=== PATIENT | female | born 1960 | race Caucasian/White ===

== ENCOUNTER 2025-04-30 17:00 | Emergency (ER) | payer OTHER ==
[~2025-04-30] VITALS: Ht 165.1 cm; Wt 117.2 kg
--- NOTE | 2025-04-30 17:25 | ED.PDOC ---
HPI Comments HPI: 65 year old female presents to the ED via EMS with a chief complaint of shortness of breath onset today. PMHx CHF, COPD, HTN, HLD, emphysema, N-stemi, cardiac stents. Per EMS, patient went to see PCP at [facility], in the last few months, patient has noticed O2 saturation drops with exertion, is on 8L O2, sat dropped to 70%. Patient is tachycardic when standing, HR was 133, [facility] called 911. Patient states she been following up with specialist due to symptoms. No other symptoms or modifying factors present at this time. Initial Vitals BP: 119/53 HR: 108 RR: 18 O2: 100 % Temp: 98.1 F Past Medical History: HTN, HLD, emphysema, N-stemi, COPD, CHF Past Surgical History: cardiac stents Social History: Denies ETOH, smoking, and drug use. Medications: Aspirin, Lasix Allergies: NKDA HPI: Poor Historian. REVIEW OF SYSTEMS: CONSTITUTIONAL: Denies acute: fever, diaphoresis, chills, generalized weakness. HEAD: Denies acute: headache, photophobia Eyes: Denies acute: Double vision, vision loss, eye pain, eye discharge. EARS: Denies acute: tinnitus, hearing loss, ear discharge, ear pain, THROAT: Denies acute: sore throat, swelling, difficulty swallowing , pain with swallowing, change in voice. NECK: Denies acute: neck pain, neck swelling, stiff neck. HEART: Denies acute : chest pain, LUNGS: Denies acute: wheezing, cough, hemoptysis ABDOMEN: Denies acute: abdominal pain, Nausea, Vomiting, diarrhea, melena , hematemesis, hematochezia SKIN: Denies acute: rash, redness, lesions, itchiness. EXTREMITIES: Denies acute: calf pain, numbness, tingling, weakness, denies pain in extremity. Denies acute: Low back pain. Neuro: Denies acute: focal neurological deficit, motor or sensory focal neurological deficit, tremors, seizure like activity, confusion, dizziness, change in mental status, loss of bowel or bladder function, cauda equina like symptoms. : Denies acute: dysuria, hematuria, flank pain, increase in urinary frequency. PSYCH: Denies acute: hallucination, suicidal ideation, homicidal ideation. FEMALE: Denies acute: abnormal vaginal bleeding, foul odor, unusual discharge. PHYSICAL EXAM: General: ---misb-km-hvnchsgl-----acute distress, awake and alert. Head: normocephalic, atraumatic. Neck: supple, trachea is midline, no swelling. Throat: Normal phonation. Eyes:, no erythema, no purulent discharge, no proptosis, no icterus. Heart: regular tachycardic, no significant murmur appreciated. Lungs: no apparent respiratory distress, Able to speak in full sentences. No wheezing, no rhonchi, no crackles. No stridors Clear to auscultation bilaterally. Abdomen: non tender to palpation, non distended, soft, no guarding, no rebound, + bowel sounds. Neuro: Awake, Alert, oriented to name, self, situation, follows commands GCS=15. Speech is normal. Skin: no petechia, no purpura, no cyanosis, non-pale, not jaundice. Lower extremities: --trace bilateral - Pitting edema no deformity, no focal swelling, no calf TTP. Makes eye contact. moves all four extremities. Face: no apparent facial droop. ED COURSE: DISCLAIMER: This medical document was created using an electronic medical record system with voice recognition software and computerized dictation system. Although this document has been carefully reviewed, there might still be some phonetic and typographical errors. Occasional wrong-word or "sound-alike" substitutions may have occurred due to the inherent limitations of voice recognition software. These areas are purely typographical due to imperfections of the software programs and do not reflect any compromise in the patient's medical care. Please read the chart carefully and recognize, using context, where these substitutions have occurred. Chief Complaint: Palpitations Time Seen by MD: 17:10 Reviewed Notes: Medications, Allergies Allergies: Coded Allergies: Citalopram (Verified Allergy, Unknown, 04/30/25) Egg Solids, Whole (Verified Allergy, Unknown, 04/30/25) Tetracycline (Verified Allergy, Unknown, 04/30/25) Information Source: Patient, Emergency Med Personnel Mode of Arrival: EMS Severity: Moderate Timing: Hours Duration: Since onset Prehospital treatment: Oxygen Onset: With Light Exertion Cardiac Risk Factors: Hyperlipidemia, HTN PE Risk Factors: None History of: Aspirin Associated Signs and Symptoms: SOB Past Medical History PAST MEDICAL HISTORY: CHF, COPD, High Lipids, HTN Past Medical History (Other): emphysema Surgical History: Denies all surgeries Surgical History (Other): stents ERRAND RUNNER History: No Pertinent ERRAND RUNNER History Family History Family History: Reviewed,noncontributory to illness, No family hx of Cancer, No family hx of DM, No family hx of Heart radha, No family hx of HTN, No family hx ofKidney radha, No family hx of Liver radha, No family hx of Lung radha, No family hx of Stroke Social History Smoker: Non-Smoker Alcohol: Denies ETOH Use Drugs: Denies Drug Use Lives In: Home Was a procedure done? Was a procedure done?: No X-Ray, Labs, Meds, VS Vital Signs Date Time Temp Pulse Resp B/P (MAP) Pulse Ox O2 Delivery O2 Flow Rate FiO2 04/30/25 20:16 18 95 Nasal Cannula* 2 28 04/30/25 20:10 146/91 04/30/25 20:10 98.3 109 16 146/91 (109) 95 98.3 04/30/25 20:05 22 96 Nasal Cannula* 2 28 04/30/25 17:07 100 04/30/25 17:04 98.1 108 18 119/53 (75) 100 98.1 Lab Test 04/30/25 21:09 04/30/25 20:33 04/30/25 20:07 04/30/25 19:04 Range/Units Troponin I High Sensitivity 7 6 </=34 ng/L Urine Color Yellow Yellow Urine Clarity Turbid H Clear Urine pH 6.0 5.0-9.0 Urine Specific [place] > 1.050 H 1.001-1.035 Urine Protein 1+ H Negative Urine Ketones Negative Negative Urine Blood Trace H Negative /uL Urine Nitrite Negative Negative Urine Bilirubin Negative Negative Urine Urobilinogen 2 H Negative mg/dL Urine Leukocyte Esterase Negative Negative /uL Urine RBC 13 0 - 4 /hpf Urine Microscopic WBC 2 0-5 /HPF Urine Squamous Epithelial Cells Mod <5 /hpf Urine Bacteria None seen None Seen /hpf Urine Mucus Few None Seen Urine Glucose Normal Normal mg/dL SARS-CoV-2 Antigen (Rapid) Negative NEGATIVE Test 04/30/25 18:48 7/11/25 17:49 Range/Units B-Type Natriuretic Peptide Pending White Blood Count 8.8 4.4-10.8 10^3/uL Red Blood Count 4.87 4.0-5.20 10^6/uL Hemoglobin 13.0 12.2-16.2 g/dL Hematocrit 40.1 36.0-46.0 % Mean Corpuscular Volume 82.3 80.0-100.0 fL Mean Corpuscular Hemoglobin 26.6 L 28.0-32.0 pg Mean Corpuscular Hemoglobin Concent 32.4 32.0-36.0 g/dL Red Cell Distribution Width 14.6 H 11.8-14.3 % Platelet Count 216 140-450 10^3/uL Mean Platelet Volume 8.9 6.9-10.8 fL Neutrophils (%) (Auto) 71.1 37.0-80.0 % Lymphocytes (%) (Auto) 17.0 10.0-50.0 % Monocytes (%) (Auto) 7.8 0.0-12.0 % Eosinophils (%) (Auto) 3.2 0.0-7.0 % Basophils (%) (Auto) 0.9 0.0-2.0 % Neutrophils # (Auto) 6.2 1.6-8.6 10 ^3/uL Lymphocytes # (Auto) 1.5 0.4-5.4 10 ^3/uL Monocytes # (Auto) 0.7 0-1.3 10 ^3/uL Eosinophils # (Auto) 0.3 0-0.8 10 ^3/uL Basophils # (Auto) 0.1 0-0.2 10 ^3/uL Nucleated Red Blood Cells 0.1 % D-Dimer, Quantitative 1.58 H 0.0-0.49 mg/L FEU Sodium Level 142 136-145 mmol/L Potassium Level 3.9 3.5-5.1 mmol/L Chloride Level 107 98-107 mmol/L Carbon Dioxide Level 27 20-31 mmol/L Anion Gap 8 5-15 Blood Urea Nitrogen 9 9-23 mg/dL Creatinine 0.74 0.550-1.02 mg/dL Glomerular Filtration Rate Calc 90 >90 mL/min BUN/Creatinine Ratio 12.2 10.0-20.0 Serum Glucose 103 74-106 mg/dL Calcium Level 10.0 8.7-10.4 mg/dL Magnesium Level 2.0 1.6-2.6 mg/dL Total Bilirubin 0.3 0.2-1.0 mg/dL Aspartate Amino Transferase (AST) 23 13-40 U/L Alanine Aminotransferase (ALT) 17 7-40 U/L Alkaline Phosphatase 109 46-116 U/L Troponin I High Sensitivity 6 </=34 ng/L Total Protein 7.0 5.7-8.2 g/dL Albumin 4.3 3.2-4.8 g/dL Current Medications Medications (Trade) Dose Ordered Sig/Juan Manuel Route Start Time Stop Time Status Last Admin Albuterol (Ventolin Medneb) 2.5 mg ONCE ONCE NEB 04/30/25 19:45 04/30/25 20:04 DC 04/30/25 20:05 Ipratropium [place] (Atrovent Medneb) 1 mg ONCE ONCE NEB 04/30/25 19:45 04/30/25 20:04 DC 04/30/25 20:05 Methylprednisolone Sodium Succinate (Solu Medrol) 125 mg ONCE ONCE IV 04/30/25 19:45 04/30/25 20:04 DC 04/30/25 20:08 Furosemide (Lasix Injection) 40 mg ONCE ONCE IV 04/30/25 19:45 04/30/25 20:04 DC 04/30/25 20:10 [place] [address] Ph: [phone] DIAGNOSTIC IMAGING Diagnostic Imaging Report : [id number] Signed PATIENT: BRADY ARROYO ACCT: [id number] UNIT: [id number] : 1960 LOC: ER ROOM / BED: / AGE / SEX: 65 / F ADM STATUS: REG ER SERVICE 2094 ORDERING PHYSICIAN: AIDAN HUNTER DO PROCEDURE(s): CTACH - CT ANGIO CHEST CONTRAST REASON: sob ORDER NUMBER(s): [id number], ACCESSION NUMBER(s): [id number] EXAM: CT CT ANGIO CHEST CONTRAST History: sob Comparison Study: None TECHNIQUE: A digital neuroscience director na image was obtained. During the uneventful, intravenous administration of contrast material, multislice data acquisition was obtained through the chest. 3-D postprocessing is performed by technologist including MIP imaging Radiation Dose : CTDI vol 29.2 mGy, DLP 920.82 mGy*cm. Findings: Lungs: There is scattered atelectasis/scarring. Biapical pleural parenchymal scarring along with mild bronchiectasis in the left upper lobe. Pleura: Unremarkable Heart/Great vessels: No cardiomegaly or pericardial effusion. Mild atherosclerotic calcifications of the aorta. Mild coronary artery calcifications. No pulmonary embolism, aneurysm, or dissection. Mediastinum: Nonspecific borderline mediastinal nodes. Soft tissues/Bones: Bilateral breast implants with suggestion of intracapsular rupture, [id number]-[id number]-[id number]-left. Upper abdomen: Small hiatal hernia. The partially visualized upper abdomen is within normal limits. Impression: 1. No CT evidence of pulmonary embolism or acute intrathoracic abnormality identified. 2. Additional findings as detailed. ATED BY: EDINSON DYKES MD DICTATED DATE/TIME: 04/30/252022 SIGNED BY: EDINSON DYKES MD SIGNED DATE/TIME: 04/30/252022 CC: [place] [address] Ph: [phone] DIAGNOSTIC IMAGING Diagnostic Imaging Report : [id number] Signed PATIENT: BRADY ARROYO ACCT: [id number] UNIT: [id number] : 1960 LOC: ER ROOM / BED: / AGE / SEX: 65 / F ADM STATUS: REG ER SERVICE 17 ORDERING PHYSICIAN: AIDAN HUNTER DO PROCEDURE(s): CXR1 - CHEST XRAY 1 VIEW REASON: palpitations ORDER NUMBER(s): [id number], ACCESSION NUMBER(s): [id number] CHEST RADIOGRAPH Indication: palpitations Technique: Single frontal view of the chest was obtained Comparison: None FINDINGS: Lines and Tubes: None Lungs: No focal consolidation. Pleura: No effusion. No pneumothorax. Cardiomediastinal contours: Unremarkable Bones: No acute osseous abnormality. IMPRESSION: 1. No acute cardiopulmonary disease. ATED BY: SMITHA ANTONY Jr., DO DICTATED DATE/TIME: 04/30/251850 SIGNED BY: SMITHA ANTONY Jr., DO SIGNED DATE/TIME: 04/30/251850 CC: Time of 1ST Reevaluation: 17:50 Reevaluation 1ST: Unchanged Time of 2ND Reevaluation: 19:36 (The case was discussed with the [facility] admitting team (HPI, physical exam, labs and diagnostic tests that were jamie ilable at the time of disposition, ED course, treatment plan) on the phone. They agreed to transfer the patient to their service by ALS for further evaluation and treatment. Dr. [email or web address]. Authorization number is--[id number]) Patient Education/Counseling: Diagnosis, Treatment Family Education/Counseling: No Family Present Departure 1 Departure Time of Disposition: 19:11 Impression: Primary Impression: Hypoxemia Additional Impressions: Elevated d-dimer Tachycardia Exertional dyspnea Left against medical advice Disposition: LEFT AGAINST MEDICAL ADVICE Admit to: Tele Condition: Guarded Discharged With: Self Critical Care Note Critical Care Time?: No I personally scribed for AIDAN HUNTER DO ([email or web address]) on 04/30/25 at 17:25. Elect ronically submitted by Leonela Henderson ([email or web address]). I personally scribed for AIDAN HUNTER DO ([email or web address]) on 04/30/25 at 18:30. Electronically submitted by Leonela Henderson ([email or web address]). I personally scribed for AIDAN HUNTER DO ([email or web address]) on 04/30/25 at 20:34. Electronically submitted by Leonela Henderson ([email or web address]). I personally scribed for AIDAN HUNTER DO ([email or web address]) on 04/30/25 at 21:48. Electronically submitted by Leonela Henderson ([email or web address]). AIDAN HUNTER DO Apr 30, 2025 17:25
[2025-04-30 18:09] LABS: Hematocrit 40.1 % (36.0-46.0); Hemoglobin 13.0 g/dL (12.2-16.2); Mean Corpuscular Hemoglobin 26.6 pg (28.0-32.0); Mean Corpuscular Volume 82.3 fL (80.0-100.0); Nucleated Red Blood Cells % 0.1 %
[2025-04-30 18:28] LABS: Alanine Aminotransferase 17 U/L (7-40); Albumin 4.3 g/dL (3.2-4.8); Alkaline Phosphatase 109 U/L (46-116); Anion Gap 8 (5-15); BUN/Creatinine Ratio 12.2 (10.0-20.0); Bilirubin, Total 0.3 mg/dL (0.2-1.0); Blood Urea Nitrogen 9 mg/dL (9-23); Calcium 10.0 mg/dL (8.7-10.4); Carbon Dioxide 27 mmol/L (20-31); Chloride 107 mmol/L (98-107); Glucose 103 mg/dL (74-106); Magnesium 2.0 mg/dL (1.6-2.6); Potassium 3.9 mmol/L (3.5-5.1); Sodium 142 mmol/L (136-145); Total Protein 7.0 g/dL (5.7-8.2)
--- NOTE | 2025-04-30 18:54 | DVH ---
CHEST RADIOGRAPH Indication: palpitations Technique: Single frontal view of the chest was obtained Comparison: None FINDINGS: Lines and Tubes: None Lungs: No focal consolidation. Pleura: No effusion. No pneumothorax. Cardiomediastinal contours: Unremarkable Bones: No acute osseous abnormality. IMPRESSION: 1. No acute cardiopulmonary disease.
[2025-04-30] MEDS: IOHEXOL 350 MG/ML 100ML IJ ONE (20:05)
[2025-04-30] MEDS: ALBUTEROL SULF 2.5 MG/0.5ML(0.5%) NEB SOLN NEB ONE (20:05)
[2025-04-30] MEDS: IPRATROPIUM BROM 0.5 MG/2.5ML INH SOL NEB ONE (20:05)
[2025-04-30] MEDS: methylPREDNISolone SOD SUCC 125 MG/2 ML VL IV ONE (20:08)
[2025-04-30 20:10] VITALS: BP 146/91; PULSE 109; TEMP 98.3
[2025-04-30] MEDS: FUROSEMIDE 40 MG/4 ML VIAL IV ONE (20:10)
[2025-04-30 20:16] VITALS: RESP 18; O2SAT 95
[2025-04-30] MEDS: IPRATROPIUM BROM 0.5 MG/2.5ML INH SOL ONE (20:22)
[2025-04-30] MEDS: ALBUTEROL SULF 2.5 MG/0.5ML(0.5%) NEB SOLN ONE (20:23)
--- NOTE | 2025-04-30 20:25 | DVH ---
EXAM: CT CT ANGIO CHEST CONTRAST History: sob Comparison Study: None TECHNIQUE: A digital coagulating bath operator image was obtained. During the uneventful, intravenous administration of c ontrast material, multislice data acquisition was obtained through the chest. 3-D postprocessing is performed by technologist including MIP imaging Radiation Dose : CTDI vol 29.2 mGy, DLP 920.82 mGy*cm. Findings: Lungs: There is scattered atelectasis/scarring. Biapical pleural parenchymal scarring along with mild bronchiectasis in the left upper lobe. Pleura: Unremarkable Heart/Great vessels: No cardiomegaly or pericardial effusion. Mild atherosclerotic calcifications of the aorta. Mild coronary artery calcifications. No pulmonary embolism, aneurysm, or dissection. Mediastinum: Nonspecific borderline mediastinal nodes. Soft tissues/Bones: Bilateral breast implants with suggestion of intracapsular rupture, right-greater -than-left. Upper abdomen: Small hiatal hernia. The partially visualized upper abdomen is within normal limits. Impression: 1. No CT evidence of pulmonary embolism or acute intrathoracic abnormality identified. 2. Additional findings as detailed.
[2025-04-30 20:50] LABS: COVID19 ANTIGEN SOFIA FIA NEGATIVE (NEGATIVE)
[2025-04-30 21:03] LABS: Urine Protein, UAD 1+ (Negative)
--- NOTE | 2025-04-30 21:15 | ECG ---
[facility] Test Date: 2025-04-30 Test Time: 17:07:40 Pat Name: BRADY ARROYO Department: ED Room: Gender: F Manager Battery: AM : 1960 Requested By: AIDAN HUNTER Order Number: [id number] Reading MD: Que Hernandez Measurements Intervals [place] Rate: 100 P: 72 DE: 149 QRS: 13 QRSD: 99 T: 38 QT: 354 QTc: 457 Interpretive Statements Sinus tachycardia Low voltage, precordial leads Electronically Signed On 05-03-2025 18:43:28 PDT by Que Hernandez Please click the below link to view image of tracing.
--- NOTE | 2025-04-30 21:15 | ECG ---
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
== END 2025-04-30 21:35 | disposition left against medical advice (07) ==
LOC: EDUNIT# 17:00 → EDBD 17:00 → ER 17:00
DX: R09.02 Hypoxemia (principal); R00.0 Tachycardia, unspecified; R79.1 Abnormal coagulation profile; I11.0 Hypertensive heart disease with heart failure; I50.9 Heart failure, unspecified; I25.2 Old myocardial infarction; E78.5 Hyperlipidemia, unspecified; Z95.5 Presence of coronary angioplasty implant and graft; Z88.1 Allergy status to other antibiotic agents; Z20.822 Contact with and (suspected) exposure to COVID-19
CPT/HCPCS: 36415; 71045; 71275; 80053; 81001; 83735; 84484; 85025; 85379; 87426; 93005; 94640; 96374; 96375; 99285; J1938; J2919; Q9967